=== PATIENT | female | born 1965 | race Two or more races ===

== ENCOUNTER → 2024-10-29 | Outpatient (CLI) | payer MEDICAID, SELFPAY ==
--- NOTE | 2024-10-29 10:00 | XR_ITS ---
Examination: Screening digital mammography, bilateral Computer aided detection 3-D breast Tomosynthesis, bilateral Date and time of exam: October 29, 2024 1007 hours INDICATIONS: Outside mammogram July 10, 2018 13 mm oval mass lower inner quadrant left breast Indication: Screening Technique: Nonmagnified MLO, CC views of the breasts to been obtained, reconstructed from 3-D Tomosynthesis images. R2 computer aided detection program utilized for evaluation of suspicious masses and/or abnormal calcifications. 3-D Tomosynthesis images obtained. Findings: Scattered areas of fibroglandular density 14 mm oval mass again depicted inner left breast 9:00 position Impression: BI-RADS Category 0: Incomplete: Need additional imaging evaluation Recommend repeat left breast sonography to further characterize the 14 mm oval mass inner left breast 9:00 position
== END | disposition home or self-care (01) ==
LOC: CDIM 09:41
PROVIDERS: Referring Provider Physician Assistant; Visit Provider Physician Assistant
DX: Z12.31 Encounter for screening mammogram for malignant neoplasm of breast (principal); N63.25 Unspecified lump in the left breast, overlapping quadrants
CPT/HCPCS: 77063; 77067

== ENCOUNTER → 2025-01-05 | Outpatient (CLI) | payer MEDICAID, SELFPAY ==
--- NOTE | 2025-01-05 09:30 | XR_ITS ---
Examination: Breast ultrasound, unilateral, left Date and time of exam: January 05, 2025, 0917 hours INDICATIONS: Mammogram October 29, 2024 14 mm oval mass inner left breast 9 o'clock position, Technique: Real-time harrison scale ultrasonographic imaging performed left breast including all 4 quadrants as well as nipple retroareolar and axillary region. Findings: 6:00 hypoechoic nodule 4 x 8 mm lobular margins 9:00 hyperechoic nodule with cystic change 9 x 11 mm IMPRESSION: BI-RADS Category 3: Probably benign findings, recommend continued 6-month left breast sonogram follow-up
== END | disposition home or self-care (01) ==
LOC: CDIM 08:55
PROVIDERS: PCP Physician Assistant; Referring Provider Physician Assistant; Visit Provider Physician Assistant
DX: N63.25 Unspecified lump in the left breast, overlapping quadrants (principal)
CPT/HCPCS: 76641